=== PATIENT | male | born 1940 | race Caucasian/White ===

== ENCOUNTER → 2020-03-22 | Outpatient (CLI) | payer OTHER | LOC: KOH-I 03-15 13:30 | DX: Z12.2 Encounter for screening for malignant neoplasm of respiratory organs (principal); J43.9 Emphysema, unspecified; R91.8 Other nonspecific abnormal finding of lung field; I25.10 Atherosclerotic heart disease of native coronary artery without angina pectoris; N28.89 Other specified disorders of kidney and ureter; F17.210 Nicotine dependence, cigarettes, uncomplicated | CPT/HCPCS: 71271 ==

== ENCOUNTER → 2020-07-28 | Outpatient (CLI) | payer OTHER | LOC: KOH-I 11:14 | DX: Z01.812 Encounter for preprocedural laboratory examination (principal); Z20.822 Contact with and (suspected) exposure to COVID-19 | CPT/HCPCS: 71046; 72070 ==

== ENCOUNTER 2020-12-19 17:06 | Inpatient (IN) | payer OTHER | END 2020-12-19 20:41 | disposition short-term general hospital (02) | DRG 270 | LOC: CCU 17:06 → CDU 17:30 | PROVIDERS: ADMIT Internal Medicine | PROC: 5A02210 Assistance with Cardiac Output using Balloon Pump, Continuous (ICD-10-PCS; principal; 2020-12-19) | PROC: 4A023N7 Measurement of Cardiac Sampling and Pressure, Left Heart, Percutaneous Approach (ICD-10-PCS; 2020-12-19) | PROC: B2111ZZ Fluoroscopy of Multiple Coronary Arteries using Low Osmolar Contrast (ICD-10-PCS; 2020-12-19) | PROC: 5A1223Z Performance of Cardiac Pacing, Continuous (ICD-10-PCS; 2020-12-19) | PROC: 02HK3JZ Insertion of Pacemaker Lead into Right Ventricle, Percutaneous Approach (ICD-10-PCS; 2020-12-19) | DX: I44.2 Atrioventricular block, complete (principal); I21.9 Acute myocardial infarction, unspecified; R00.1 Bradycardia, unspecified; Z86.73 Personal history of transient ischemic attack (TIA), and cerebral infarction without residual deficits; Z79.899 Other long term (current) drug therapy | CPT/HCPCS: 33210; 36415; 82550; 82553; 83880; 84484; 99152; 99153; C1769; G0378; J1720; J7040 ==

== ENCOUNTER → 2021-04-18 | Outpatient (CLI) | payer OTHER | LOC: KOH-I 11:04 | DX: R06.02 Shortness of breath (principal); R91.8 Other nonspecific abnormal finding of lung field | CPT/HCPCS: 71046 ==

== ENCOUNTER → 2021-06-28 | Outpatient (CLI) | payer OTHER | LOC: HEART 5 06-18 14:30 → ECHO 14:03 | DX: I25.10 Atherosclerotic heart disease of native coronary artery without angina pectoris (principal); I08.3 Combined rheumatic disorders of mitral, aortic and tricuspid valves; I27.20 Pulmonary hypertension, unspecified; Z95.1 Presence of aortocoronary bypass graft; Z95.0 Presence of cardiac pacemaker | CPT/HCPCS: ECHO; 93306 ==

== ENCOUNTER 2021-07-03 17:46 | Inpatient (IN) | payer OTHER ==
[~2021-07-03] VITALS: Ht 175.3 cm; Wt 79.4 kg
[~2021-07-03 17:46] MED LIST: CLONAZEPAM1 MG PO
[2021-07-03 19:14] LABS: HEMOGLOBIN 11.3 gm/dl (14.0-17.5); RED BLOOD COUNT 3.7 M/UL (4.20-5.50); WHITE BLOOD COUNT 6.7 K/UL (4.5-11.0)
[2021-07-04] MEDS ORDERED: ZETIA10 MG PO (12:45)
[2021-07-04] MEDS ORDERED: MYRBETRIQ25 MG PO (12:45)
[2021-07-04] MEDS ORDERED: LEVOTHYROXINE50 MCG PO (12:46)
[2021-07-04] MEDS ORDERED: MIDODRINE HCL5 MG PO (12:48)
[2021-07-04] MEDS ORDERED: AMIODARONE HCL200 MG PO (12:50)
[2021-07-04] MEDS ORDERED: ELIQUIS5 MG PO (12:52)
[2021-07-04] MEDS ORDERED: ATORVASTATIN CA40 MG PO (12:52)
[2021-07-04] MEDS ORDERED: LEVOCETIRIZINE D5 MG PO (12:57)
[2021-07-04] MEDS ORDERED: DULOXETINE HCL20 MG PO (12:58)
[2021-07-04] MEDS ORDERED: AVODART0.5 MG PO (12:59)
[2021-07-04] MEDS ORDERED: ZYLOPRIM 100 M100 MG PO (13:00)
[2021-07-04] MEDS ORDERED: VITAMIN D350 MCG PO (13:02)
[2021-07-04] MEDS ORDERED: PROTONIX 40 MG40 M1 PO (13:04)
[2021-07-04] MEDS ORDERED: PROAIR HFA8.5 GM INH (13:10)
[2021-07-05 03:29] LABS: HEMOGLOBIN 10.1 gm/dl (14.0-17.5); WHITE BLOOD COUNT 5.7 K/UL (4.5-11.0)
[2021-07-05 03:57] LABS: RED BLOOD COUNT 3.29 M/UL (4.20-5.50)
[2021-07-06 03:32] LABS: HEMOGLOBIN 10.3 gm/dl (14.0-17.5); RED BLOOD COUNT 3.37 M/UL (4.20-5.50); WHITE BLOOD COUNT 5.4 K/UL (4.5-11.0)
[2021-07-07 06:13] LABS: RED BLOOD COUNT 3.59 M/UL (4.20-5.50); WHITE BLOOD COUNT 4.9 K/UL (4.5-11.0)
[2021-07-07 09:13] LABS: CREATININE, URINE 49.8 mg/dL (Not Estab.)
[2021-07-08 03:50] LABS: HEMOGLOBIN 10.8 gm/dl (14.0-17.5); RED BLOOD COUNT 3.59 M/UL (4.20-5.50)
[2021-07-09 06:39] LABS: HEMOGLOBIN 11.7 gm/dl (14.0-17.5); RED BLOOD COUNT 3.83 M/UL (4.20-5.50); WHITE BLOOD COUNT 7.4 K/UL (4.5-11.0)
[2021-07-09 15:10] LABS: A/G RATIO 1.1 (0.7-1.7); ALBUMIN 2.9 g/dL (2.9-4.4); ALPHA-1-GLOBULIN 0.3 g/dL (0.0-0.4); BETA GLOBULIN 0.8 g/dL (0.7-1.3); GAMMA GLOBULIN 0.7 g/dL (0.4-1.8); GLOBULIN, TOTAL 2.9 g/dL (2.2-3.9); IMMUNOGLOBULIN A, QN, SERUM 235 mg/dL (61-437); IMMUNOGLOBULIN G, QN, SERUM 667 mg/dL (603-1613); IMMUNOGLOBULIN M, QN, SERUM 77 mg/dL (15-143); M-SPIKE Not Observed g/dL (Not Observed); PROTEIN, TOTAL, SERUM 5.8 g/dL (6.0-8.5)
[2021-07-10 06:22] LABS: HEMOGLOBIN 12.2 gm/dl (14.0-17.5); RED BLOOD COUNT 3.98 M/UL (4.20-5.50); WHITE BLOOD COUNT 7.5 K/UL (4.5-11.0)
--- NOTE | 2021-07-10 10:31 | NUR ---
PT IS WANTING TO SHOWER, DOCTOR APPROVED FOR PT TO HAVE HIS LIFE VEST REMOVED
[2021-07-11 06:43] LABS: HEMOGLOBIN 11.3 gm/dl (14.0-17.5); RED BLOOD COUNT 3.65 M/UL (4.20-5.50); WHITE BLOOD COUNT 6.5 K/UL (4.5-11.0)
[2021-07-11] MEDS ORDERED: FERROUS SULFAT325 M2 PO (11:44)
[2021-07-12 04:09] LABS: HEMOGLOBIN 11.3 gm/dl (14.0-17.5); RED BLOOD COUNT 3.68 M/UL (4.20-5.50)
[2021-07-13 06:07] LABS: HEMOGLOBIN 11.5 gm/dl (14.0-17.5); RED BLOOD COUNT 3.76 M/UL (4.20-5.50); WHITE BLOOD COUNT 6.9 K/UL (4.5-11.0)
[2021-07-14 06:14] LABS: HEMOGLOBIN 11.5 gm/dl (14.0-17.5); RED BLOOD COUNT 3.73 M/UL (4.20-5.50); WHITE BLOOD COUNT 6.2 K/UL (4.5-11.0)
[2021-07-15 06:54] LABS: HEMOGLOBIN 12.1 gm/dl (14.0-17.5); RED BLOOD COUNT 3.91 M/UL (4.20-5.50); WHITE BLOOD COUNT 7.3 K/UL (4.5-11.0)
[2021-07-16 05:48] LABS: HEMOGLOBIN 11.7 gm/dl (14.0-17.5); RED BLOOD COUNT 3.77 M/UL (4.20-5.50); WHITE BLOOD COUNT 6.8 K/UL (4.5-11.0)
[2021-07-17 06:34] LABS: RED BLOOD COUNT 3.84 M/UL (4.20-5.50); WHITE BLOOD COUNT 6.9 K/UL (4.5-11.0)
== END 2021-07-17 18:45 | disposition home or self-care (01) | DRG 683 ==
LOC: ER1 17:46 → CDU 21:32 → MED SURG 4 21:32
PROVIDERS: Internal Medicine; Internal Medicine Nephrology; Nurse Practitioner; Physician Assistant Medical; ADMIT Internal Medicine
DX: N17.0 Acute kidney failure with tubular necrosis (principal); I13.0 Hypertensive heart and chronic kidney disease with heart failure and stage 1 through stage 4 chronic kidney disease, or unspecified chronic kidney disease; I50.22 Chronic systolic (congestive) heart failure; C90.01 Multiple myeloma in remission; N40.1 Benign prostatic hyperplasia with lower urinary tract symptoms; R33.8 Other retention of urine; Z20.822 Contact with and (suspected) exposure to COVID-19; E03.9 Hypothyroidism, unspecified; N18.30 Chronic kidney disease, stage 3 unspecified; R31.9 Hematuria, unspecified; N13.9 Obstructive and reflux uropathy, unspecified; N28.1 Cyst of kidney, acquired; D50.9 Iron deficiency anemia, unspecified; I25.5 Ischemic cardiomyopathy; N13.30 Unspecified hydronephrosis; E78.5 Hyperlipidemia, unspecified; I25.10 Atherosclerotic heart disease of native coronary artery without angina pectoris; I72.3 Aneurysm of iliac artery; E83.42 Hypomagnesemia; I95.1 Orthostatic hypotension; Z86.73 Personal history of transient ischemic attack (TIA), and cerebral infarction without residual deficits; Z95.1 Presence of aortocoronary bypass graft; Z95.0 Presence of cardiac pacemaker; Z98.890 Other specified postprocedural states; Z80.1 Family history of malignant neoplasm of trachea, bronchus and lung; Z79.899 Other long term (current) drug therapy
CPT/HCPCS: 36415; 51702; 71045; 80048; 80053; 81001; 82043; 82570; 82728; 82784; 83540; 83550; 83735; 83880; 84100; 84155; 84156; 84165; 85025; 85027; 86334; 87086; 93005; 94760; 96372; 97116; 97116-GP-CQ; 97161; 97165; 97530; 97530-GP-CQ; 97535; 99284; G0378; J1644; J1756; J3475; J7030; U0002

== ENCOUNTER → 2021-09-14 | Outpatient (CLI) | payer OTHER ==
[~2021-09-14] MED LIST changes: +AMIODARONE HCL200 MG PO; +ATORVASTATIN CA40 MG PO; +AVODART0.5 MG PO; +CLEOCIN HCL300 MG PO; +DULOXETINE HCL20 MG PO; +ELIQUIS5 MG PO; +FERROUS SULFAT325 M2 PO; +HYDROCODON-ACE1 EAC4 PO; +LEVOCETIRIZINE D5 MG PO; +LEVOFLOXACIN250 MG PO; +LEVOTHYROXINE50 MCG PO; +MIDODRINE HCL5 MG PO; +MYRBETRIQ25 MG PO; +NITROSTAT 0.40.4 MG SL; +ONE-DAILY MULT1 EACH PO; +PROAIR HFA8.5 GM INH; +PROTONIX 40 MG40 M1 PO; +VITAMIN D350 MCG PO; +ZETIA10 MG PO; +ZYLOPRIM 100 M100 MG PO
[2021-09-14 10:46] LABS: HEMOGLOBIN 13.2 gm/dl (14.0-17.5); WHITE BLOOD COUNT 7.9 K/UL (4.5-11.0)
== END ==
LOC: LAB 10:25
PROVIDERS: Internal Medicine Cardiovascular Disease
DX: I25.5 Ischemic cardiomyopathy (principal); N18.30 Chronic kidney disease, stage 3 unspecified; I48.91 Unspecified atrial fibrillation
CPT/HCPCS: 36415; 71046; 80048; 85025

== ENCOUNTER 2021-09-18 07:45 | Outpatient (CLI) | payer OTHER ==
[~2021-09-18] VITALS: Ht 175.3 cm; Wt 76.9 kg
[~2021-09-18 07:45] MED LIST changes: -CLEOCIN HCL300 MG PO; -HYDROCODON-ACE1 EAC4 PO; -LEVOFLOXACIN250 MG PO; -NITROSTAT 0.40.4 MG SL; -ONE-DAILY MULT1 EACH PO
[2021-09-18] MEDS ORDERED: CLONAZEPAM1 MG PO (08:39)
[2021-09-18] MEDS ORDERED: ONE-DAILY MULT1 EACH PO (08:40)
[2021-09-18] MEDS ORDERED: NITROSTAT 0.40.4 MG SL (08:41)
[2021-09-18] MEDS ORDERED: LEVOFLOXACIN250 MG PO (12:14)
[2021-09-18] MEDS ORDERED: CLEOCIN HCL300 MG PO (12:14)
[2021-09-18] MEDS ORDERED: HYDROCODON-ACE1 EAC4 PO (12:14)
== END 2021-09-19 12:30 | disposition home or self-care (01) ==
LOC: PROG CARE 07:45 → CATH 07:45 → PROG CARE 13:32 → CATH 09-19 12:30
DX: I50.22 Chronic systolic (congestive) heart failure (principal); I25.5 Ischemic cardiomyopathy; I44.2 Atrioventricular block, complete; I25.2 Old myocardial infarction; I48.92 Unspecified atrial flutter; I42.0 Dilated cardiomyopathy; I44.7 Left bundle-branch block, unspecified; I25.10 Atherosclerotic heart disease of native coronary artery without angina pectoris; N18.30 Chronic kidney disease, stage 3 unspecified; E78.5 Hyperlipidemia, unspecified; I95.9 Hypotension, unspecified; R33.9 Retention of urine, unspecified; I48.91 Unspecified atrial fibrillation; K21.9 Gastro-esophageal reflux disease without esophagitis; M10.9 Gout, unspecified; E78.00 Pure hypercholesterolemia, unspecified; Z95.1 Presence of aortocoronary bypass graft; Z95.810 Presence of automatic (implantable) cardiac defibrillator; Z87.891 Personal history of nicotine dependence; Z86.73 Personal history of transient ischemic attack (TIA), and cerebral infarction without residual deficits; Z79.01 Long term (current) use of anticoagulants; Z79.02 Long term (current) use of antithrombotics/antiplatelets
CPT/HCPCS: 33234; 71045; 93005; 93641; 99152; 99153; C1769; C1777; C1882; C1900; J1644; J2250; J3010; J3370; J7040; J7050; J7070; Q9965